=== PATIENT | female | born 1930 | race Caucasian/White ===

== ENCOUNTER 2020-04-04 11:38 | Outpatient (RCR) | payer MEDICARE, BC | END 2020-05-03 | disposition home or self-care (01) | LOC: WCC 11:38 | DX: L97.312 Non-pressure chronic ulcer of right ankle with fat layer exposed (principal); L97.311 Non-pressure chronic ulcer of right ankle limited to breakdown of skin; T81.31XA Disruption of external operation (surgical) wound, not elsewhere classified, initial encounter; M86.171 Other acute osteomyelitis, right ankle and foot; X58.XXXA Exposure to other specified factors, initial encounter; Y92.9 Unspecified place or not applicable | CPT/HCPCS: 11042; C5271; Q4102 ==

== ENCOUNTER → 2020-04-07 | Outpatient (CLI) | payer MEDICARE, BC ==
--- NOTE | 2020-04-07 13:19 | Diagnostic Imaging Report ---
Indication: Pain and swelling for 8 months Technique: 3 views of the right ankle Comparison: none Findings: There is surgical hardware seen reducing old healed distal fibular and medial malleolar fractures. Hardware appears intact. No acute fractures. No dislocations. Bones are osteoporotic. No definite osseous erosions. Impression: No definite acute abnormality Osteoporosis Postsurgical and posttraumatic changes as described
== END | disposition home or self-care (01) ==
LOC: RAD 09:28
DX: M25.571 Pain in right ankle and joints of right foot (principal); R22.41 Localized swelling, mass and lump, right lower limb; M81.0 Age-related osteoporosis without current pathological fracture; M86.9 Osteomyelitis, unspecified

== ENCOUNTER → 2020-04-18 | Outpatient (CLI) | payer MEDICARE, BC ==
--- NOTE | 2020-04-18 13:41 | Diagnostic Imaging Report ---
Indication: Reason For Exam: See myelitis, right ankle wound. Technique: Phase bone scan of the feet performed utilizing 24.5 mCi of technetium MDP. Flow study, immediate images, and delayed images were obtained. Comparison: None. Findings: There is increased flow to the right foot on the flow images. Immediate static images demonstrate diffuse increased uptake in the soft tissues of the right foot there is also increased uptake in the left heel. Delayed static images demonstrate increased uptake in the left heel increased uptake in the right ankle and calcaneus. Images of the right ankle demonstrate hardware in the medial malleolus and fibula. Impression: Increased flow, immediate, and delayed uptake in the right ankle and hindfoot. With the presence of hardware, this could be related to recent surgery. Osteomyelitis of the ankle and calcaneus is another possibility if the surgery is more remote. Clinical correlation suggested. Increased uptake in the left heel. This suggests inflammatory disease and/or trauma. Correlation with plain films suggested.
== END | disposition home or self-care (01) ==
LOC: NUM 08:57
DX: M86.9 Osteomyelitis, unspecified (principal); S91.001A Unspecified open wound, right ankle, initial encounter; X58.XXXA Exposure to other specified factors, initial encounter; Y92.9 Unspecified place or not applicable
CPT/HCPCS: 78315; A4641

== ENCOUNTER 2020-06-06 12:59 | Outpatient (RCR) | payer MEDICARE, BC ==
[~2020-06-06] VITALS: Ht 147.3 cm; Wt 51.3 kg
[2020-06-08] MEDS ORDERED: Lidocaine 2% MPF 5ml Vial INJ ONE (16:00)
== END 2020-07-04 | disposition home or self-care (01) ==
LOC: WCC 12:59
DX: L97.312 Non-pressure chronic ulcer of right ankle with fat layer exposed (principal); L97.311 Non-pressure chronic ulcer of right ankle limited to breakdown of skin; T81.31XA Disruption of external operation (surgical) wound, not elsewhere classified, initial encounter; M86.171 Other acute osteomyelitis, right ankle and foot; L97.522 Non-pressure chronic ulcer of other part of left foot with fat layer exposed; X58.XXXA Exposure to other specified factors, initial encounter; Y92.9 Unspecified place or not applicable